=== PATIENT | male | born 1980 | race Caucasian/White ===

== ENCOUNTER → 2016-10-13 | Outpatient (CLI) | payer OTHER ==
[~2016-10-13] MED LIST: AMOX875T PO; AZIT250T PO; METH4PAK4 PO; OXYC1TAB3 PO
[2016-10-13 17:41] LABS: BENZODIAZEPINE, URINE NEG (NEG); COCAINE,URINE NEG (NEG); PHENCYCLIDINE, URINE NEG (NEG)
[2016-10-16 21:07] LABS: COD UR 73 NG/ML (CUTOFF=50); HYDROCOD UR NEGATIVE NG/ML (CUTOFF=50); HYDROMOR UR NEGATIVE NG/ML (CUTOFF=50); MORPHINE UR 82 NG/ML (CUTOFF=50); NORHYDROCODONE CONF UR NEGATIVE NG/ML (CUTOFF=50); OXYMORPH UR NEGATIVE NG/ML (CUTOFF=50)
== END | disposition home or self-care (01) ==
LOC: C.LAB1850 16:19
PROVIDERS: ATTEND Psychiatry & Neurology Psychiatry
DX: F11.20 Opioid dependence, uncomplicated (principal); Z79.899 Other long term (current) drug therapy

== ENCOUNTER 2017-01-08 21:25 | Emergency (ER) | payer OTHER ==
[~2017-01-08] VITALS: Ht 188 cm; Wt 108.6 kg
[~2017-01-08 21:25] MED LIST changes: -AMOX875T PO
[2017-01-08 21:33] VITALS: TEMP 36.7; Ht 188 cm; Wt 108.6 kg
--- NOTE | 2017-01-08 22:14 | EMERGENCY ROOM VISIT NOTE ---
History First contact with patient: 21:36 Chief Complaint: FLU LIKE SX Stated Complaint: SWOLLEN GLANDS, FLU LIKE SX History of Present Illness The patient is a 36 year old male who presents to the Emergency Room with complaints of flu-like symptoms. Patients reports 24 hrs hx of progressive subjective fever, chills, productive cough, runny nose in addition to fatigue, body ache Tried taking DayQuil, Advil overnight with minimal relief. Patient went to [facility] for evaluation, and tested negative for Influenza and Strep pharyngitis. Pt denies headache, chest pain, shortness of breath, nausea, vomiting, diarrhea, pain with urination, melena. Review of Systems See HPI for pertinent positives & negatives. A total of 10 systems reviewed and were otherwise negative. Past Medical/Surgical History Medical Problems: (1) Asthma (2) Esophagitis Surgical Problems: (1) S/P appendectomy Social History Smoking Status: Current Every Day Smoker Alcohol Use: none Drug Use: none Occupation Status: employed Current/Historical Medications Scheduled Amoxicillin & Pot Clavulanate (Augmentin 875-125 mg), 875 MG PO BID Allergies Coded Allergies: No Known Allergies (Unverified , 01/08/17) Physical Exam Vital Signs Date Time Temp Pulse Resp B/P Pulse Ox O2 Delivery O2 Flow Rate FiO2 01/08/17 23:21 82 18 145/92 96 01/08/17 21:33 36.7 79 18 155/82 96 Room Air Physical Exam GENERAL: alert, well appearing, non-toxic EYE EXAM: normal conjunctiva, PERRL and EOM's grossly intact OROPHARYNX: pharyngeal erythema, no tonsillar exudates, lips, buccal mucosa, and tongue normal and mucous membranes are moist NECK:Tenderness along parotid, submandibular glands, no nuchal rigidity, no adenopathy, LUNGS: Clear to auscultation. Normal chest wall mechanics HEART: no murmurs, S1 normal and S2 normal ABDOMEN: abdomen soft, non-tender, normo-active bowel sounds, no masses, no rebound or guarding. SKIN: no rashes and no bruising UPPER EXTREMITIES: upper extremities are grossly normal. LOWER EXTREMITIES: No pitting edema. NEURO EXAM: Normal sensorium, cranial nerves II-XII grossly intact, normal speech, no gross weakness of arms, no gross weakness of legs. Medical Decision & Procedures Laboratory Results Test 01/08/17 22:40 Medications Administered Medications (Trade) Dose Ordered Sig/Lindsay Route Start Time Stop Time Status Last Admin Dose Admin Amoxicillin/ Clavulanate Potassium (Augmentin Tab) 875 mg ONE ONCE PO 01/08/17 23:00 01/08/17 23:01 DC 01/08/17 23:16 875 MG Medical Decision 36 yo M p/w progressive 24 hx soar throat, productive cough, rhinorrhea previously negative for influenza , streptococcal at [facility] prior to arrival , afebrile, well appearing on exam with parotid tenderness. Tenderness and mild swelling along parotid glands suggestive of Parotitis. DDx: Viral URI vs. Bacterial rhinosinusitis vs Influenza vs. Streptococcal pharyngitis vs. Bacterial Parotitis vs. Mumps parotitis -Patient managed as a suspected parotitis potentially of bacterial or mumps etiology. Mumps Abs were ordered. Patient was sent home with Augmentin 875 mg BID. Patient will be informed if Mumps testing are positive. Impression Primary Impression: Parotitis, acute Departure Information Dispostion Home / Self-Care Condition GOOD Prescriptions Amoxicillin & Pot Clavulanate (Augmentin 875-125 mg) 1 Tab Tab 875 MG PO BID, #14 TAB Prov: Paresh Williamson D.O. 01/08/17 Referrals No Doctor, Assigned (PCP) Patient Instructions My [facility] Resident Tracking Resident Involvement: Resident Care Provided Care Provided: Adult ED
[2017-01-08] MEDS ORDERED: AMOX875T PO (22:54)
--- NOTE | 2017-01-08 22:54 | EMERGENCY ROOM VISIT NOTE ---
History Report prepared by Srinivas: Fam Ko Under the Supervision of: Dr. Paresh Williamson D.O. First contact with patient: 21:36 Chief Complaint: FLU LIKE SX Stated Complaint: SWOLLEN GLANDS, FLU LIKE SX History of Present Illness The patient is a 36 year old male who presents to the Emergency Room with complaints of worsening swollen glands in his neck beginning several hours prior to arrival He currently rates his discomfort as a 6/10 in severity. The patient associates a sorethroat, chills, cough, resolved fever this morning, fatigue, body aches, swollen tonsils, and difficulty swallowing with todays symptoms. He states he was referred to the ED by [facility], because they were concerned for mumps. The patient notes his flu and strep test were negative at the office today. 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 Review of Systems See HPI for pertinent positives & negatives. A total of 10 systems reviewed and were otherwise negative. Past Medical & Surgical Medical Problems: (1) Asthma (2) Esophagitis Surgical Problems: (1) S/P appendectomy Family History Patient reports no known family medical history. Social History Smoking Status: Current Every Day Smoker Marital Status: single Occupation Status: employed Current/Historical Medications Scheduled Amoxicillin & Pot Clavulanate (Augmentin 875-125 mg), 875 MG PO BID Allergies Coded Allergies: No Known Allergies (Unverified , 01/08/17) Physical Exam Vital Signs Date Time Temp Pulse Resp B/P Pulse Ox O2 Delivery O2 Flow Rate FiO2 01/08/17 21:33 36.7 79 18 155/82 96 Room Air Physical Exam CONSTITUTIONAL/VITAL SIGNS: Reviewed / noted above. GENERAL: Non-toxic in appearance. INTEGUMENTARY: Warm, dry, and [place]. HEAD: Normocephalic. EYES: without scleral icterus or trauma. ENT/OROPHARYNX: clear and moist. LYMPHADENOPATHY/NECK: Mild swelling and tenderness in the left infra and posterior mandibular area. RESPIRATORY: Lungs clear and equal. CARDIOVASCULAR: Regular rate and rhythm. GI/ABDOMEN: Soft and nontender. No organomegaly or pulsatile mass. No rebound or guarding. Normal bowel sounds. EXTREMITIES: Warm and well perfused. BACK: No CVA tenderness. NEUROLOGICAL: Intact without focal deficits. PSYCHIATRIC: normal affect. MUSCULOSKELETAL: Normally developed with good muscle tone. Medical Decision & Procedures Laboratory Results Test 01/08/17 22:40 Laboratory results as stated above per my review. ED Course 2139: Patient was evaluated by the Dog Day Care Attendant, Dr. David Dow. 2223: Previous medical records were reviewed. The patient was evaluated in room A11B. A complete history and physical examination was performed. 2325: On reevaluation, the patient is doing well. I discussed the results and findings with the patient. He verbalized agreement of the treatment plan. The patient was discharged home. Medical Decision Differential diagnosis: Etiologies such as viral syndrome, tonsillitis, streptococcal pharyngitis, mononucleosis, peritonsillar abscess, retropharyngeal abscess, otitis, pneumonia , influenza, as well as others were entertained. This is a 36-year-old male who presents to the ED with a chief complaint of achiness, tiredness, sore throat and a fever this morning. The patient also reports a slight cough. The patient symptoms started this morning. His primary complaint is that of some swollen glands primarily on the left. He was seen at [facility] and then sent here for evaluation. The patient denies any dental issues other his last molar on the left does not completely appear healthy. There is no purulent drainage from it. There is no swelling or purulent drainage from Stensen's duct. The patient does have some swelling and tenderness to the left inframandibular and posterior mandibular area just below the ear. Mumps testing was performed and sent to the [facility]. The patient will be treated with Augmentin. He is felt to be stable for discharge. Impression Primary Impression: Parotitis, acute Scribe Attestation The scribe's documentation has been prepared under my direction and personally reviewed by me in its entirety. I confirm that the note above accurately reflects all work, treatment, procedures, and medical decision making performed by me. Departure Information Dispostion Home / Self-Care Prescriptions Amoxicillin & Pot Clavulanate (Augmentin 875-125 mg) 1 Tab Tab 875 MG PO BID, #14 TAB Prov: Paresh Williamson D.O. 01/08/17 Referrals No Doctor, Assigned (PCP) Forms HOME CARE DOCUMENTATION FORM, IMPORTANT VISIT INFORMATION Patient Instructions ED [facility], My [facility] Additional Instructions Augmentin as prescribed. Take Tylenol or Motrin as needed for pain. Follow-up with your doctor for recheck in 3-5 days. If your swelling increases, you could have mumps. This could be contagious. Talk to your doctor if this occurs. Information on mumps has been provided.
[2017-01-08] MEDS ORDERED: AMOXICILLIN/CLAVULANATE TAB 875 MG TAB PO ONE (23:00)
[2017-01-08 23:21] VITALS: BP 145/92; PULSE 82; O2SAT 96
== END 2017-01-08 23:21 | disposition home or self-care (01) ==
LOC: C.EDB 21:26 → C.EDA 23:21
DX: K11.21 Acute sialoadenitis (principal); J45.909 Unspecified asthma, uncomplicated; K20.9 Esophagitis, unspecified; F17.200 Nicotine dependence, unspecified, uncomplicated; Z98.890 Other specified postprocedural states

== ENCOUNTER → 2017-02-08 | Outpatient (CLI) | payer OTHER ==
[2017-02-08 15:01] LABS: BENZODIAZEPINE, URINE NEG (NEG); COCAINE,URINE NEG (NEG); PHENCYCLIDINE, URINE NEG (NEG)
[2017-02-11 12:17] LABS: NORBUPRENORPHINE QNT 386 NG/ML (CUTOFF=2)
== END | disposition home or self-care (01) ==
LOC: C.LAB1850 12:16
PROVIDERS: ATTEND Psychiatry & Neurology Psychiatry
DX: F11.20 Opioid dependence, uncomplicated (principal); Z79.899 Other long term (current) drug therapy

== ENCOUNTER → 2017-10-25 | Outpatient (CLI) | payer OTHER ==
[2017-10-25 14:01] LABS: ALBUMIN 3.8 gm/dl (3.4-5.0); TOTAL PROTEIN 8.1 gm/dl (6.4-8.2)
== END | disposition home or self-care (01) ==
LOC: C.LAB1850 11:20
PROVIDERS: ATTEND Psychiatry & Neurology Psychiatry
DX: Z79.899 Other long term (current) drug therapy (principal)